=== PATIENT | male | born 1980 | race Caucasian/White ===

== ENCOUNTER 2021-01-17 16:12 | Emergency (ER) | payer BC ==
[~2021-01-17] VITALS: Ht 180.3 cm; Wt 84.4 kg
[2021-01-17] MEDS ORDERED: VYVANSE30 MG PO (16:19)
[2021-01-17] MEDS ORDERED: XANAX2 MG PO (16:19)
[2021-01-17 16:41] LABS: ABSOLUTE EOSINOPHILS 0.1 thou/uL (0.0-0.7); ABSOLUTE LYMPHOCYTES 1.9 thou/uL (0.8-5.3); ABSOLUTE MONOCYTES 0.5 thou/uL (0.0-1.2); ABSOLUTE NEUTROPHILS 3.9 thou/uL (1.6-8.1); BASOPHILS 0.6 %; EOSINOPHILS 1.8 %; HEMATOCRIT 43.5 % (42.0-52.0); HEMOGLOBIN 14.6 gm/dL (14.0-18.0); MCH 29.6 pg (26.0-34.0); MCHC 33.5 g/dL (28.0-37.0); MCV 88.1 fL (80.0-100.0); MONOCYTES 8.3 %; MPV 8.6 fl. (7.2-11.1); NUCLEATED RBCS 0 /100WBC; PLATELET COUNT* 238 thou/uL (150-400); POLYS 60.3 %; RBC 4.94 mil/uL (4.50-6.00); RDW-CV 12.7 % (10.5-14.5); WBC 6.5 thou/uL (4.0-11.0)
[2021-01-17 16:52] LABS: CREATININE 1.1 mg/dL (0.6-1.3); POTASSIUM 3.9 mmol/L (3.5-5.1)
[2021-01-17 17:03] LABS: MAGNESIUM 2.2 mg/dL (1.8-2.4); TOTAL BILIRUBIN 0.2 mg/dL (<0.1-1.0); TOTAL PROTEIN 7.4 g/dL (6.4-8.2)
[2021-01-17 17:10] VITALS: BP 126/79
--- NOTE | 2021-01-18 09:59 | EKG ---
[place] [address] ELECTROCARDIOGRAM REPORT Name: WILL MERA Room: [facility]#: [id number] Admission: 01/17/21 Attend Phys: Discharge: 01/17/21 Date of : 78 Date of Service: 01/17/211613 Report #: [id number] THIS REPORT FOR: //name// [facility] ED Test Date: 2021-01-17 Test Time: 16:14:39 Pat Name: WILL MERA Department: Room: Gender: Groundskeeper Porter: : 1980 Requested By: Rah Torres Order Number: [id number] MD: Maciel Miller Measurements Intervals [place] Rate: 65 P: 71 ID: [id number] QRS: 27 QRSD: 123 T: 53 QT: 394 QTc: 410 Interpretive Statements Sinus rhythm Nonspecific intraventricular conduction delay No previous ECG available for comparison Electronically Signed On 01-18-2021 9:59:25 PIT MANAGER by Maciel Miller [email or web address] <ELECTRONICALLY SIGNED> By: Maciel Miller MD, [facility] 01/18/21 [id number] 161 Maciel Miller MD, FACC /EPI
== END 2021-01-17 17:10 | disposition home or self-care (01) ==
LOC: M.ERS 16:12
PROVIDERS: Family Medicine
DX: R07.89 Other chest pain (principal); Z88.6 Allergy status to analgesic agent; Z79.899 Other long term (current) drug therapy